=== PATIENT | female | born 1990 | race Caucasian/White ===

== ENCOUNTER 2018-08-16 11:46 | Emergency (ER) | payer MEDICAID ==
[~2018-08-16] VITALS: Ht 162.6 cm; Wt 79.8 kg
[2018-08-16 12:12] VITALS: Ht 162.6 cm; Wt 79.8 kg
[2018-08-16 12:50] LABS: BASOPHIL % 0.7 % (0-2); PLATELET COUNT 157 x10^3mcL (130-400)
[2018-08-16 14:20] VITALS: BP 102/50
== END 2018-08-16 14:20 | disposition home or self-care (01) ==
LOC: ED 11:46
PROVIDERS: Emergency Medicine
DX: N94.6 Dysmenorrhea, unspecified (principal); N93.8 Other specified abnormal uterine and vaginal bleeding; G44.209 Tension-type headache, unspecified, not intractable; Z88.1 Allergy status to other antibiotic agents
CPT/HCPCS: 36415; J1885; Q0162